=== PATIENT | male | born 1950 | race Hispanic/Latino ===

== ENCOUNTER 2017-10-31 19:17 | Emergency (ER) | payer MEDICAID ==
[2017-10-31 19:35] VITALS: BP 135/71; PULSE 82; RESP 18; TEMP 97.3; O2SAT 98
--- NOTE | 2017-10-31 21:03 | ED PDOC ---
HPI: Psych/Substance Abuse Time Seen by Provider: 10/31/17 19:58 Chief Complaint (Nursing): Alcohol Ingestion Chief Complaint (Provider): alcohol intoxication and frequent falls History Per: Patient History/Exam Limitations: no limitations Onset/Duration Of Symptoms: Days Current Symptoms Are (Timing): Still Present Modifying Factor(s): Alcohol Additional Complaint(s): 67 year old male presents to the ED via EMS for alcohol intoxication and frequent falls. States he was kicked out of [facility] and cannot remember any injury. The [facility] told him her was too [facility] to stay in the [facility]. Also reports he was seen in [place] due to a fall. He was advised that he had sustained a wound to his right forehead and is unsure if imagining was done. Patient admits to drinking 1 pint of vodka. Denies loss of consciousness, headache, chest pain, weakness, dizziness, or any other complaints. PMD: No Family Provider Past Medical History Reviewed: Historical Data, Nursing Documentation, Vital Signs Vital Signs: Last Vital Signs Temp 97.3 F L 10/31/17 19:33 Pulse 82 10/31/17 19:33 Resp 18 10/31/17 19:33 BP 135/71 10/31/17 19:33 Pulse Ox 98 10/31/17 19:33 - Medical History PMH: No Chronic Diseases - Family History Family History: States: Unknown Family Hx - Allergies Allergies/Adverse Reactions: Allergies Allergy/AdvReac Type Severity Reaction Status Date / Time No Known Allergies Allergy Verified 10/31/17 19:33 Review of Systems ROS Statement: Except As Marked, All Systems Reviewed And Found Negative Cardiovascular: Negative for: Chest Pain Neurological: Negative for: Weakness, Headache, Dizziness Physical Exam - Reviewed Nursing Documentation Reviewed: Yes Vital Signs Reviewed: Yes - Physical Exam Appears: Positive for: Non-toxic, No Acute Distress Head Exam: Positive for: ATRAUMATIC, NORMOCEPHALIC. Negative for: NORMAL INSPECTION (Right superficial abrasion with surrounding swelling, no laceration , no erythema or active bleeding) Skin: Positive for: Normal Color, Warm, Dry. Negative for: Rash Eye Exam: Positive for: Normal appearance, EOMI, PERRL ENT: Positive for: Normal ENT Inspection Neck: Positive for: Normal, Painless ROM, Supple. Negative for: Decreased ROM Cardiovascular/Chest: Positive for: Regular Rate, Rhythm. Negative for: Murmur Respiratory: Positive for: Normal Breath Sounds. Negative for: Decreased Breath Sounds, Accessory Muscle Use, Respiratory Distress Gastrointestinal/Abdominal: Positive for: Normal Exam, Bowel Sounds, Soft. Negative for: Tenderness, Guarding, Rebound Extremity: Positive for: Normal ROM. Negative for: Tenderness, Pedal Edema, Deformity Neurologic/Psych: Positive for: Alert, Oriented (x3), Other (slurred speech and alcohol on breath) - Laboratory Results Result Diagrams: 10/31/17 21:47 10/31/17 21:47 - ECG O2 Sat by Pulse Oximetry: 98 (RA) Pulse Ox Interpretation: Normal - Progress Re-evaluation Time: 23:30 (Gait steady unassisted. No slurred speech. ) Condition: Re-examined, Improved Medical Decision Making Medical Decision Making: Time: 2020 Initial Plan: --Cervical Spine w/o Contrast CT --Head w/o Contrast CT --EKG --Alcohol Serum --CMP --Drug Screen --Troponin I --CBC w/ Differential --Chest Portable [RAD] --Cervical Spine AP & Lateral [RAD] --Urinalysis --Reevaluation Scribe Attestation: Documented by Romelia Cueva, acting as a scribe for Micheal Arce PA-C. Provider Scribe Attestation: All medical record entries made by the Scribe were at my direction and personally dictated by me. I have reviewed the chart and agree that the record accurately reflects my personal performance of the history, physical exam, medical decision making, and the department course for this patient. I have also personally directed, reviewed, and agree with the discharge instructions and disposition. Disposition - Clinical Impression Clinical Impression: Alcohol intoxication, Head injury - Patient ED Disposition Is Patient to be Admitted: No - Disposition Referrals: [facility] [Outside] Disposition: Routine/Home Disposition Time: 23:30 Condition: IMPROVED Additional Instructions: Follow up with PMD for further evaluation. Return to ED immediately if symptoms worsen. Instructions: Alcohol Use - When Is Drinking a Problem?, Minor Head Injury (DC) , Alcohol Abuse and Alcoholism (DC) Forms: [facility] (Wallisian) Print Language: PERUVIAN
--- NOTE | 2017-10-31 21:38 | CT ---
EXAM: CT Head Without Intravenous Contrast EXAM DATE/TIME: 10/31/2017 8:21 PM CLINICAL HISTORY: 67 years old, male; Injury or trauma; Fall; Initial encounter; Concussion / head injury; Consciousness not specified TECHNIQUE: Axial computed tomography images of the head/brain without intravenous contrast. All CT scans at this facility use at least one of these dose optimization techniques: automated exposure control; mA and/or kV adjustment per patient size (includes targeted exams where dose is matched to clinical indication); or iterative reconstruction. Coronal and sagittal reformatted images were created and reviewed. COMPARISON: There are no prior studies for comparison. FINDINGS: Brain: There is prominence of sulci gyri and ventricles. There is no midline shift. There is decreased attenuation in periventricular white matter. There are no focal masses. There are no focal hemorrhages. Vaughan-white differentiation is visualized. Ventricles: See above. Bones: Cranial vault is intact. Soft tissues: There is a right frontal scalp hematoma. Sinuses: There is mucoperiosteal thickening in the sinuses. There are retention cysts/polyps in the maxillary sinuses. There is debris in the frontal, ethmoid and sphenoid sinuses. There is mucosal thickening about the nasal turbinates with small nodules. Ears and mastoids: Middle ears and mastoids are unremarkable. Orbits: Orbital contents are unremarkable. IMPRESSION: Right frontal scalp hematoma, no underlying fracture, no acute intracranial abnormality; sinus disease and possible nasal polyps
[2017-10-31 21:50] LABS: BASO # 0.1 K/uL (0.0-0.2); BASO % 0.9 % (0.0-2.0); EOS # 0.6 K/uL (0.0-0.7); HEMOGLOBIN 12.6 g/dL (12.0-18.0); LYMPH # 2.3 K/uL (1.0-4.3); LYMPH % 32.2 % (20.0-40.0); MEAN CELL VOLUME 90.7 fl (80.0-94.0); MEAN CORPUSCULAR HEMOGLOBIN 30.1 pg (27.0-31.0); MEAN CORPUSCULAR HGB CONC 33.2 g/dL (33.0-37.0); MEAN PLATELET VOLUME 7.7 fl (7.2-11.7); MONO # 0.7 K/uL (0.0-0.8); NEUT # 3.5 K/uL (1.8-7.0); NEUT % 47.9 % (50.0-75.0); RBC 4.2 Mil/uL (4.40-5.90); RED CELL DISTRIBUTION WIDTH 16.3 % (11.5-14.5); WHITE BLOOD COUNT 7.2 K/uL (4.8-10.8)
--- NOTE | 2017-10-31 21:51 | CT ---
EXAM: CT Cervical Spine Without Intravenous Contrast EXAM DATE/TIME: 10/31/2017 8:23 PM CLINICAL HISTORY: 67 years old, male; Injury or trauma; Fall; Initial encounter; Concussion /head injury TECHNIQUE: Axial computed tomography images of the cervical spine without intravenous contrast. All CT scans at this facility use at least one of these dose optimization techniques: automated exposure control; mA and/or kV adjustment per patient size (includes targeted exams where dose is matched to clinical indication); or iterative reconstruction. Coronal and sagittal reformatted images were created and reviewed. COMPARISON: There are no prior studies for comparison. FINDINGS: Vertebrae: There is partial straightening of the cervical lordosis. There is no prevertebral soft tissue swelling. There are no fractures. There is multilevel degenerative change. There is narrowing of the predental space. There is disc space narrowing at all levels. Narrowing is greatest at C6-C7, C7-T1 and T1/T2. There is osteophyte formation. There is small subchondral cysts. Facet joints align anatomically. There is ankylosis of the C2/C3 facet joints. There is marked narrowing of the C3-C4 facet joints bilaterally. There is less extensive degenerative facet disease and additional levels. Spinous processes align in the expected fashion. Discs/spinal canal/neural foramina: See above. Soft tissues: See above. Vasculature: There are vascular calcifications. Thyroid: Thyroid is not optimally demonstrated. Lung apices: There are paraseptal emphysematous changes. There is apical pleural thickening. There is there is a nodular opacity at the left apex. IMPRESSION: Multilevel degenerative change, no fracture; paraseptal emphysema with a nodular opacity at the left apex Followup suggested as clinically indicated
[2017-10-31 22:02] LABS: ALB/GLOB RATIO 1.3 (1.0-2.1); ALBUMIN 3.9 g/dL (3.5-5.0); ALT/SGPT 26 U/L (21-72); AST/SGOT 23 U/L (17-59); BLOOD UREA NITROGEN 13 mg/dl (9-20); CALCIUM 9.2 mg/dL (8.4-10.2); GFR AFRICAN-AMERICAN > 60; GFR NON-AFRICAN AMERICAN > 60
--- NOTE | 2017-11-01 09:34 | RAD ---
HISTORY: clearance COMPARISON: No prior. FINDINGS: LUNGS: No active pulmonary disease. PLEURA: No significant pleural effusion identified, no pneumothorax apparent. CARDIOVASCULAR: Normal. OSSEOUS STRUCTURES: No significant abnormalities. VISUALIZED UPPER ABDOMEN: Normal. OTHER FINDINGS: None. IMPRESSION: No active disease.
--- NOTE | 2017-11-01 09:45 | CARD ---
APPROVED REPORT EKG Measurement Heart [id number] <Conclusion> Normal sinus rhythm with sinus arrhythmia Possible Left atrial enlargement Borderline ECG
--- NOTE | 2017-11-01 10:19 | RAD ---
PROCEDURE: Cervical Spine Radiographs. HISTORY: Pain. COMPARISON: None. FINDINGS: BONES: There is mild straightening of the cervical curvature without fracture or spondylolisthesis appreciable. The odontoid process appears intact though the C1-2 articulation is degenerated. Craniocervical junction appears unremarkable. Multilevel facet joint and disc degenerative changes are appreciated throughout the cervical spine and appear relatively advanced. Prevertebral soft tissues are unremarkable. Lateral soft tissues reflect vascular calcifications likely in the bilateral carotid arterial systems. DISC SPACES: As above. SOFT TISSUES: As above. OTHER FINDINGS: None. IMPRESSION: Multilevel cervical spondylosis and gross facet joint degenerative changes are seen greater the left and right at multiple levels. No fracture or spondylolisthesis grossly evident. CT or MRI are available for further characterization if clinically warranted.
== END 2017-11-01 00:04 | disposition home or self-care (01) ==
LOC: H.ER 19:17
DX: F10.129 Alcohol abuse with intoxication, unspecified (principal); R29.6 Repeated falls; S00.03XA Contusion of scalp, initial encounter; W19.XXXA Unspecified fall, initial encounter; Y92.89 Other specified places as the place of occurrence of the external cause

== ENCOUNTER 2018-06-19 18:40 | Emergency (ER) | payer MEDICARE, MEDICAID ==
[2018-06-19 19:02] VITALS: TEMP 98
--- NOTE | 2018-06-19 19:44 | ED PDOC ---
HPI: Psych/Substance Abuse Time Seen by Provider: 06/19/18 19:27 Chief Complaint (Nursing): Alcohol Ingestion Chief Complaint (Provider): Alcohol Ingestion ED Caveat: Intoxicated History Per: Patient, EMS History/Exam Limitations: clinical condition Current Symptoms Are (Timing): Still Present Suicide/Self Injury Attempted (Context): None Modifying Factor(s): Alcohol Additional Complaint(s): 68 year old male presents to the ED via EMS for evaluation of alcohol intoxication after he was [facility] out of the [facility] this evening. Patent is somnolent on arrival and refusing to answer provider's questions. No reports of trauma. History is limited due to intoxication. PMD: none provided Past Medical History Reviewed: Historical Data, Nursing Documentation, Vital Signs, Unable To Obtain Vital Signs: Last Vital Signs Temp 98.0 F 06/19/18 18:58 Pulse 89 06/19/18 18:58 Resp 16 06/19/18 18:58 BP 120/71 06/19/18 18:58 Pulse Ox 98 06/19/18 18:58 - Family History Family History: States: Unknown Family Hx - Allergies Allergies/Adverse Reactions: Allergies Allergy/AdvReac Type Severity Reaction Status Date / Time No Known Allergies Allergy Verified 06/19/18 18:58 Review of Systems Review Of Systems: ROS cannot be obtained secondary to pt's inabilty to answer questions. (refusing to answer questions) Physical Exam - Reviewed Nursing Documentation Reviewed: Yes Vital Signs Reviewed: Yes - Physical Exam Comments: GENERAL APPEARANCE: Patient is somnolent and disheveled with odor of alcohol; poor hygiene SKIN: Warm, dry; (-) cyanosis HEAD: (-) scalp swelling, (-) scalp tenderness. NECK: Supple, FROM ENT: Mucus membranes moist. Airway patent, (-) stridor. HEART AND CARDIOVASCULAR: (-) irregularity CHEST AND RESPIRATORY: (-) rales, (-) rhonchi, (-) wheezes; breath sounds equal. Respirations even and nonlabored. - ECG O2 Sat by Pulse Oximetry: 98 (RA) Pulse Ox Interpretation: Normal Medical Decision Making Medical Decision Makin:32 Clinical Impression: alcohol intoxication Initial Plan: --Accucheck --Alcohol serum 20:50 --Patient is sleeping comfortably and in no acute distress. Accucheck: 139 Serum alcohol: 384 2240 --Patient is sleeping comfortably and in no acute distress. 0000 Patient ambulatory in ED with a steady, unassisted gait. Patient oriented x3. Patient was observed in ED for 5+ hours with no evidence of neurological deterioration. Patient expresses no complaints. Vitals stable. Stable for discharge. Lab/Diagnostic results d/w the patient in great detail. Diagnosis of alcohol abuse with intoxication d/w the patient. Based on history, exam and diagnostic results, plan will be for outpatient follow up Patient instructed to follow-up with pmd / referral provided / the clinic in 1- 2 days without fail. Return to the emergency room at any time for any new or worsening symptoms. Patient states he fully agrees with and understands discharge instructions. States that he agrees with the plan and disposition. Verbalized and repeated discharge instructions and plan. I have given the patient opportunity to ask any additional questions. Scribe Attestation: Documented by Khushboo Lyles, acting as a scribe for Isa Guerra PA-C Provider Scribe Attestation: All medical record entries made by the Scribe were at my direction and personally dictated by me. I have reviewed the chart and agree that the record accurately reflects my personal performance of the history, physical exam, medical decision making, and the department course for this patient. I have also personally directed, reviewed, and agree with the discharge instructions and disposition. Disposition - Clinical Impression Clinical Impression: Alcohol abuse with intoxication - Patient ED Disposition Is Patient to be Admitted: No Counseled Patient/Family Regarding: Studies Performed, Diagnosis, Need For Followup - Disposition Referrals: [facility] [Outside] [facility] [Outside] Disposition: Routine/Home Disposition Time: 00:00 Condition: STABLE Additional Instructions: The emergency medical care you received today was directed at your acute symptoms. If you were prescribed any medication, please fill it and take as directed. It may take several days for your symptoms to resolve. Return to the Emergency Department if your symptoms worsen, do not improve, or if you have any other problems. Please contact your doctor in 2 days for re-evaluation and follow up / or call one of the physicians/clinics you have been referred to that are listed on the Patient Visit Information form that is included in your discharge packet. Bring any paperwork you were given at discharge with you along with any medications you are taking to your follow up visit. Our treatment cannot replace ongoing medical care by a primary care provider (PCP) outside of the emergency department. Instructions: Alcohol Use - When Is Drinking a Problem?, Alcohol Abuse and Alcoholism (DC), Effects of Alcohol on Your Health Forms: [facility] (Haitian) Print Language: UGANDAN - POA Present On Arrival: None Results - Lab Results Lab Results: 06/19/18 06/19/18 20:34 20:21 POC Glucose (mg/dL) 139 H Alcohol, Quantitative 384 H*
[2018-06-20 00:25] VITALS: BP 127/72; PULSE 83; RESP 18
[2018-06-22 14:22] VITALS: O2SAT 98
== END 2018-06-20 00:29 | disposition home or self-care (01) ==
LOC: H.ER 18:40
DX: F10.129 Alcohol abuse with intoxication, unspecified (principal)
CPT/HCPCS: 82948; 99284; G0480

== ENCOUNTER 2018-06-27 16:26 | Emergency (ER) | payer MEDICARE, MEDICAID ==
[2018-06-27 16:42] VITALS: BMI 30.4
[2018-06-27 16:43] VITALS: TEMP 98.1; O2SAT 98
--- NOTE | 2018-06-27 18:14 | ED PDOC ---
HPI: Psych/Substance Abuse Time Seen by Provider: 06/27/18 18:04 Chief Complaint (Nursing): Alcohol Ingestion Chief Complaint (Provider): Alcohol Ingestion History Per: Patient, EMS History/Exam Limitations: intoxication Current Symptoms Are (Timing): Still Present Additional Complaint(s): 68 year old male with history of alcohol abuse presents to the ED via EMS after being found publicly intoxicated. Patient tearfully admits to drinking and a history of abuse, but states is unsure why he is here and just wants a sandwich. Denies SI/ HI. Limitations in obtaining pmhx are secondary to patient's intoxication. PMD: none provided Past Medical History Reviewed: Unable To Obtain Vital Signs: Last Vital Signs Temp 98.1 F 06/27/18 16:42 Pulse 87 06/27/18 16:42 Resp BP 122/61 06/27/18 16:42 Pulse Ox 98 06/27/18 16:42 - Family History Family History: States: Unknown Family Hx - Social History Alcohol: Other (hx of abuse) - Home Medications Home Medications: Ambulatory Orders Medication Instructions Recorded Permethrin 5% [Permethrin] 60 gm TP ONCE #1 tube 06/27/18 - Allergies Allergies/Adverse Reactions: Allergies Allergy/AdvReac Type Severity Reaction Status Date / Time No Known Allergies Allergy Verified 06/19/18 18:58 Review of Systems ROS Statement: Except As Marked, All Systems Reviewed And Found Negative Psych: Positive for: Other (alcohol intoxication). Negative for: Suicidal ideation (and HI) Physical Exam - Reviewed Nursing Documentation Reviewed: Yes Vital Signs Reviewed: Yes - Physical Exam Appears: Positive for: No Acute Distress Head Exam: Positive for: ATRAUMATIC, NORMOCEPHALIC Skin: Positive for: Normal Color, Warm Neck: Positive for: Normal, Painless ROM Cardiovascular/Chest: Positive for: Regular Rate, Rhythm Respiratory: Positive for: Normal Breath Sounds. Negative for: Respiratory Distress Gastrointestinal/Abdominal: Positive for: Normal Exam, Soft. Negative for: Tenderness Neurologic/Psych: Positive for: Alert (and awake), Other (alcohol on breath) - ECG O2 Sat by Pulse Oximetry: 98 (RA) Pulse Ox Interpretation: Normal - Progress ED Course And Treament: accucheck 96 As patient was being discharged, noted by RN to have insect on person. Permethrin cream ordered and shower prepared for patient. Patient does not want to shower as water is cold. Medical Decision Making Medical Decision Making: Time: 1805 Initial Impression: alcohol abuse Initial Plan: --Accucheck Scribe Attestation: Documented by Klarissa Irene, acting as a scribe for Ben Ahn PA-C. Provider Scribe Attestation: All medical record entries made by the Scribe were at my direction and personally dictated by me. I have reviewed the chart and agree that the record accurately reflects my personal performance of the history, physical exam, medical decision making, and the department course for this patient. I have also personally directed, reviewed, and agree with the discharge instructions and disposition. Disposition - Clinical Impression Clinical Impression: Lice - Patient ED Disposition Is Patient to be Admitted: No - Disposition Disposition: Routine/Home Disposition Time: 23:17 Condition: FAIR Prescriptions: Permethrin 5% [Permethrin] 60 gm TP ONCE #1 tube Instructions: Lice
[2018-06-27] MEDS ORDERED: Permethrin 5% CREAM TOP ONE (21:30)
[2018-06-28 00:55] VITALS: BP 115/70; PULSE 88; RESP 16
== END 2018-06-28 00:56 | disposition home or self-care (01) ==
LOC: H.ER 16:26
DX: B85.0 Pediculosis due to Pediculus humanus capitis (principal)

== ENCOUNTER 2018-06-30 19:20 | Emergency (ER) | payer MEDICARE, MEDICAID ==
[2018-06-30 19:20] VITALS: BMI 30.4
--- NOTE | 2018-06-30 19:35 | ED PDOC ---
HPI: Head Injury Time Seen by Provider: 06/30/18 19:25 Chief Complaint (Nursing): Trauma Chief Complaint (Provider): Head injury History Per: Patient History/Exam Limitations: no limitations Injury Occurred (Timing): Just Before Arrival Onset/Duration Of Symptoms: Mins (just before arrival) Patient States: Fell Striking Head Severity: Moderate Loss Of Consciousness: No Additional Complaint(s): 68 year old homeless male with a past medical history of alcoholism is brought into the ED via EMS for an evaluation of a head injury that occurred just prior to arrival. Patient states that he was walking when he "tripped over his hard shoe, and fell on his face," sustaining a laceration to the left side of his forehead. Patient denies having loss of consciousness or any other complaints. PMD: None provided Past Medical History Reviewed: Historical Data, Nursing Documentation, Vital Signs Vital Signs: Last Vital Signs Temp 98 F 06/30/18 19:26 Pulse 81 06/30/18 19:26 Resp 18 06/30/18 19:26 BP Pulse Ox 100 06/30/18 19:26 ABBIE Report Viewed: Yes - Medical History PMH: No Chronic Diseases - Family History Family History: States: No Known Family Hx - Living Arrangements Living Arrangements: Other (homeless) - Social History Alcohol: > 2 Drinks/Day - Home Medications Home Medications: Ambulatory Orders Medication Instructions Recorded Permethrin 5% [Permethrin] 60 gm TP ONCE #1 tube 06/27/18 - Allergies Allergies/Adverse Reactions: Allergies Allergy/AdvReac Type Severity Reaction Status Date / Time No Known Allergies Allergy Verified 06/30/18 19:26 Review of Systems ROS Statement: Except As Marked, All Systems Reviewed And Found Negative Skin: Positive for: Other (laceration to left side forehead) Physical Exam - Reviewed Nursing Documentation Reviewed: Yes Vital Signs Reviewed: Yes - Physical Exam Appears: Positive for: Well, Non-toxic, No Acute Distress Head Exam: Positive for: NORMOCEPHALIC. Negative for: ATRAUMATIC (1.00 semicircular flap to left side of frontal scalp) Skin: Positive for: Normal Color, Warm, Dry Eye Exam: Positive for: Normal appearance Cardiovascular/Chest: Positive for: Regular Rate, Rhythm Respiratory: Positive for: Normal Breath Sounds Neurologic/Psych: Positive for: Alert, Oriented (3x) - ECG O2 Sat by Pulse Oximetry: 100 (RA) Pulse Ox Interpretation: Normal - CT Scan/US ct head w/o contrast Other Rad Studies (CT/US): Read By Radiologist, Radiology Report Reviewed (see MDM note) ct cervical spine w/o contrast Other Rad Studies (CT/US): Read By Radiologist, Radiology Report Reviewed (see MDM note) Medical Decision Making Medical Decision Makin:25 Initial impression: 68 year old male with a facial laceration Initial plan: * CT cervical spine w/o contrast * CT head w/o contrast * laceration repair * reevaluation 19:35 Lido/epi used, to control bleeding pressure dressing applied. 21:20 Laceration repair using 3 6-0 proline sutures 22:12 CT Head FINDINGS: BRAIN No acute intraparenchymal hemorrhage. No mass lesion. No CT evidence for acute territorial infarct. No midline shift or extra-axial collections. Moderate diffuse cerebral/cerebellar atrophy is noted. There are bilateral periventricular and subcortical white matter hypolucencies compatible with mild chronic microvascular disease. VENTRICLES: No hydrocephalus. ORBITS: The orbits are unremarkable. SINUSES AND MASTOIDS: Lobulated mucosal area still thickening is seen in the maxillary and ethmoid sinuses bilaterally and left frontal ethmoid recess thought compatible with chronic sinusitis. A persistent 1.6 x 1.4 cm mucous retention cyst or polyp is seen in the postero-medial left maxillary sinus.The remaining paranasal sinuses and mastoid air cells are clear. BONES: No fracture. SOFT TISSUES: A small right frontal scalp hematoma and a small-moderate left frontal lateral scalp hematoma are identified. IMPRESSION: 1. No acute intracranial abnormality. 2. Small right frontal and small-moderate left frontal lateral scalp hematomas noted. 3. Moderate diffuse cerebral/cerebellar atrophy. 4. Mild chronic microvascular disease. 5. Chronic bilateral maxillary, ethmoid and left frontal ethmoid recess sinusitis. 6. 1.6 cm mucous retention cyst or polyp in the postero-medial left maxillary sinus. 22:20 CT C Spine FINDINGS: ALIGNMENT: Bony alignment is anatomic. DEGENERATIVE CHANGES: No significant canal stenosis. Moderate-severe left neural foraminal narrowing evident at C4-5 and C5-6. Hypertrophic bilateral apophyseal facet arthropathy noted at C2-3, C3-4, C4-5, 5-6. Advanced bilateral uncovertebral facet arthropathy noted at C4-5, C5-6, C6-7, C7-T1. Advanced degenerative arthritis noted within the atlanto-dens interval. Degenerative disc disease is noted at C6-7, C7-T1. SOFT TISSUES: The prevertebral soft tissues are within normal limits. Dense atherosclerotic vascular plaquing is noted within the carotid bulbs bilaterally. BONES: No acute fracture or aggressive appearing osseous lesion. Advanced degenerative arthritis is seen within the left TMJ. IMPRESSION: 1. No acute cervical spine abnormality. 2. Evidence of degenerative disc disease at C6-7, C7-T1. 3. Bilateral hypertrophic apophyseal facet arthropathy at C2-3, C3-4, C4-5, C5- 6. 4. Bilateral advanced uncovertebral facet arthropathy at C4-5, C5-6, C6-7, C7- T1. 5. Advanced degenerative arthritis within the atlanto-dens interval. 6. Atheromatous calcific plaquing within the carotid bulbs bilaterally. 7. Moderate-severe left exit foramen encroachment at C4-5 and C5-6. 8. No significant interval change. Scribe Attestation: Documented byIsa Schaffer, acting as a scribe for Ben Ahn PA-C. Provider Scribe Attestation: All medical record entries made by the Scribe were at my direction and personally dictated by me. I have reviewed the chart and agree that the record accurately reflects my personal performance of the history, physical exam, medical decision making, and the department course for this patient. I have also personally directed, reviewed, and agree with the discharge instructions and disposition. Procedures - Time-Out Type of Procedure: 21:20 Site of Procedure: left side forehead Correct Patient (with visual ID + MR# on ID Band): Yes Correct Procedure: Yes Correct Site Marked: Yes - Laceration/Wound Repair Left Frontal Wound Length (cm): 1 Wound's Depth, Shape: flap Wound Repaired With: Sutures Suture Size/Type: 6:0, proline Number of Sutures: 3 Wound Complexity: Simple Disposition - Clinical Impression Clinical Impression: Head injury, Facial laceration - Patient ED Disposition Is Patient to be Admitted: Transfer of Care - Disposition Disposition: Transfer of Care Disposition Time: 00:00 Condition: FAIR Instructions: Closed Head Injury (DC), Laceration Repair With Stitches (DC) Patient Signed Over To: Archie Falk Handoff Comments: D/C IN AM
[2018-07-01 07:15] VITALS: BP 141/73; PULSE 98; RESP 19; TEMP 97.7; O2SAT 99
--- NOTE | 2018-07-01 12:29 | CT ---
Date of service: 06/30/2018 PROCEDURE: CT HEAD WITHOUT CONTRAST. HISTORY: head injury COMPARISON: 10/31/2017. TECHNIQUE: Axial computed tomography images were obtained through the head/brain without intravenous contrast. Supplemental Coronal and Sagittal projections created and reviewed. Radiation dose: Total exam DLP = 1230.02 mGy-cm. This CT exam was performed using one or more of the following dose reduction techniques: Automated exposure control, adjustment of the mA and/or kV according to patient size, and/or use of iterative reconstruction technique. FINDINGS: HEMORRHAGE: No intracranial hemorrhage. BRAIN: No mass effect or edema. Cortical and cerebellar atrophy, periventricular small vessel disease. VENTRICLES: Unremarkable. No hydrocephalus. CALVARIUM: Unremarkable. PARANASAL SINUSES: No evidence of acute sinus disease. Mucous retention cyst left maxillary sinus a stable finding. MASTOID AIR CELLS: Unremarkable as visualized. No inflammatory changes. OTHER FINDINGS: Left frontal scalp contusion. IMPRESSION: No acute intracranial abnormalities. No significant findings to account for the clinical presentation. No significant interval change compared to the prior examination(s). Concordant results (preliminary interpretation) provided by [facility]. Procedure Completed: 21:04. Preliminary Report: Interpreted and electronically signed: 22:12. Final Interpretation: 12:25. July 01, 2018
--- NOTE | 2018-07-01 12:49 | CT ---
Date of service: 06/30/2018 PROCEDURE: CT Cervical Spine without contrast HISTORY: fall/ head injury/etoh COMPARISON: 10/31/2017 CT cervical spine. TECHNIQUE: Axial computed tomography images were obtained of the cervical spine without the use of intravenous contrast. Coronal and sagittal reformatted images were created and reviewed. Radiation dose: Total exam DLP = 351.65 mGy-cm. This CT exam was performed using one or more of the following dose reduction techniques: Automated exposure control, adjustment of the mA and/or kV according to patient size, and/or use of iterative reconstruction technique. FINDINGS: VERTEBRAE: Reversal of the anatomic lordosis with kyphosis. Degree: Similar findings identified on the prior study. DISCS/SPINAL CANAL/NEURAL FORAMINA: Disc degenerative changes C5-6, C6-7, C7-T1. Disc space narrowing at these levels as well. Multilevel facet arthropathy scattered throughout the cervical spine, unchanged. Discs heights are grossly preserved. PARASPINAL SOFT TISSUES: Unremarkable. OTHER FINDINGS: Biapical scarring left greater than right. Similar upper lobe findings identified on the prior CT scan of the cervical spine. IMPRESSION: No acute findings related to/ accounting for the clinical presentation. Additional benign and/or incidental findings described above. No significant interval change compared to the prior examination(s). Concordant results (preliminary interpretation) provided by [facility]. Procedure Completed: 21:09. Preliminary Report: Interpreted and electronically signed: 22:20. Final Interpretation: 12:30. July 01, 2018.
== END 2018-07-01 06:55 | disposition home or self-care (01) ==
LOC: H.ER 19:20
DX: S01.81XA Laceration without foreign body of other part of head, initial encounter (principal); S09.90XA Unspecified injury of head, initial encounter; J32.2 Chronic ethmoidal sinusitis; Z59.0 Homelessness; W01.0XXA Fall on same level from slipping, tripping and stumbling without subsequent striking against object, initial encounter; Y93.01 Activity, walking, marching and hiking
CPT/HCPCS: 70450; 72125; 82948; 99285; G0480